=== PATIENT | male | born 2000 | race Caucasian/White ===

== ENCOUNTER → 2019-11-23 16:13 | Outpatient (BNVA) | payer SELFPAY | PROVIDERS: Family Provider Nurse Practitioner; PCP Nurse Practitioner; Visit Provider Nurse Practitioner Family | DX: J02.9 Acute pharyngitis, unspecified (principal) | CPT/HCPCS: 87071; 87880 ==

== ENCOUNTER → 2020-06-13 16:45 | Outpatient (BNVA) | payer BC, SELFPAY | PROVIDERS: Family Provider Nurse Practitioner; PCP Family Medicine; Visit Provider Nurse Practitioner Family | DX: K29.70 Gastritis, unspecified, without bleeding (principal); B96.81 Helicobacter pylori [H. pylori] as the cause of diseases classified elsewhere; K21.9 Gastro-esophageal reflux disease without esophagitis | CPT/HCPCS: 87635 ==

== ENCOUNTER 2020-06-19 08:55 | Day surgery (SDC) | payer BC, SELFPAY ==
[2020-06-18 09:38] VITALS: BMI 36.2
[2020-06-19 09:19] VITALS: BP 167/93; PULSE 16; RESP 120; TEMP 37; O2SAT 99
[2020-06-19] MEDS: sodium chloride 0.9% 1,000 ML 30 ML IV (09:40)
--- NOTE | 2020-06-19 09:44 | P.ANESASSM_ITS ---
Pre-Anesthetic Assessment Pre-Anesthetic Assessment: Height/Weight: Height 1.8 m Weight 117.934 kg Temp Pulse Resp BP Pulse Ox 98.6 F 16 L 120 H 167/93 99 06/19/20 09:19 06/19/20 09:19 06/19/20 09:19 06/19/20 09:19 06/19/20 09:19 Preop Diagnosis: upper gi symptoms Proposed Procedure: Operation Date: 06/19/20 10:00 Proposed Procedures p EGD 37814 K21.9 K29.70(Not Applicable) - Tanner iPke MD Familial anesthetic complications: None Was Beta Humble taken within 24 hours: N/A Last intake: Intake Last Liquid Date 06/18/20 Last Liquid Time 21:00 Last Solid Date 06/18/20 Last Solid Time 21:00 Social: Social History: No alcohol and No tobacco Exam: Pre-Anes Outpt Exam: alert, oriented x 3, clear to auscultation bi laterally and regular rate & rhythm Airway: Cervical ROM: WNL MP: 1 Dentition: Full and Other (permanent ret ainer - bottom) Anesthetic Plan: ASA status: 1 Anesthesia: MAC Risk of > 500 ml blood loss (7ml/kg in children): No Other Pertinent Information: hearing aids Meds/Allergies Current Medications: Current Medications Generic Name Dose Route Start Last Admin Trade Name Freq PRN Reason Stop Dose Admin Sodium Chloride 1,000 mls @ 30 ml s/hr 06/19/20 09:30 06/19/20 09:40 Sodium Chloride 0.9% IV 06/20/20 09:29 30 mls/hr .Q24H BRENDAN Administration PFSH Anesthesia PFSH: Medical History (Updated 06/01/20 @ 19:25 by Tanner Pike MD) Gastroesophageal reflux disease Hearing loss Surgical History (Updated 06/01/20 @ 10:46 by Tanner Pike MD) History of oral surgery Family History (Updated 04/24/20 @ 14:41 by Niharika Condon LPN) Mother Osteoporosis Hypertension Hyperlipidemia Father Non-Hodgkin lymphoma Social History (Updated 04/24/20 @ 14:41 by Niharika Condon LPN) Smoking and tobacco status: never smoked Alcohol intake: current Alcohol intake frequency: holidays/special occasions only Data Anesthesia Cardiac Studies: No Data to Display
--- NOTE | 2020-06-19 10:10 | W.PM.OPSUD ---
Surgery/Procedure H&P Update DATE OF PROCEDURE: June 19, 2020 DATE H&P PERFORMED: 06/01/20 H&P UPDATE INFORMATION: I have reviewed H&P completed within last 30 days, I have examined patient prior to procedure and No changes to prior documentation PREOP DIAGNOSIS: upper gi symptoms PLANNED PROCEDURE: Operation Date: 06/19/20 10:00 Proposed Procedures p EGD 65264 K21.9 K29.70(Not Applicable) - Tanner Pike MD
[2020-06-19 11:09] VITALS: BP 121/73; PULSE 100; RESP 20; TEMP 36.4; O2SAT 97
[2020-06-19 11:26] VITALS: BP 127/83; PULSE 91; RESP 20; TEMP 36.4; O2SAT 96
--- NOTE | 2020-06-19 14:32 | ANE.PACU2 ---
Inpatient post-anesthesia follow up: Airway intact: Yes Vital signs: Temperature 97.5 F Pulse Rate 91 Respiratory Rate 20 Blood Pressure 127/83 Pulse Oximetry 96 Oxygen Delivery Me thod Room Air Oxygen Flow Rate Fraction of Inspir ed Oxygen Hydration adequate: Yes Nausea and vomiting: No Pain level: 1 Mental status: Baseline
== END 2020-06-19 11:46 | disposition home or self-care (01) ==
PROVIDERS: PCP Family Medicine; Visit Provider Surgery
PROC: 0DJ08ZZ Inspection of Upper Intestinal Tract, Via Natural or Artificial Opening Endoscopic (ICD-10-PCS; CPT 43235; principal; 2020-06-19 10:00)
DX: K21.9 Gastro-esophageal reflux disease without esophagitis (principal); K20.90 Esophagitis, unspecified without bleeding; K22.2 Esophageal obstruction; K44.9 Diaphragmatic hernia without obstruction or gangrene
CPT/HCPCS: 12345; 43239; 88305; J2704; J7030

== ENCOUNTER → 2021-03-08 11:47 | Outpatient (BNVA) | payer BC, SELFPAY | PROVIDERS: PCP Family Medicine; Visit Provider Nurse Practitioner Family | DX: K21.9 Gastro-esophageal reflux disease without esophagitis (principal); K29.70 Gastritis, unspecified, without bleeding; R53.83 Other fatigue; Z13.6 Encounter for screening for cardiovascular disorders; Z79.899 Other long term (current) drug therapy; M25.50 Pain in unspecified joint; B96.81 Helicobacter pylori [H. pylori] as the cause of diseases classified elsewhere; R10.9 Unspecified abdominal pain | CPT/HCPCS: 74018; 80053; 80061; 81003; 82306; 82607; 83036; 83735; 84443; 85025 ==

== ENCOUNTER → 2021-11-22 09:44 | Outpatient (BNVA) | payer OTHER, SELFPAY | PROVIDERS: PCP Family Medicine; Visit Provider Nurse Practitioner Family | DX: Z20.822 Contact with and (suspected) exposure to COVID-19 (principal) | CPT/HCPCS: 87635 ==